=== PATIENT | female | born 1950 | race Two or more races ===

== ENCOUNTER 2020-09-29 10:19 | Emergency (ER) | payer MEDICARE, BC ==
[~2020-09-29] VITALS: Ht 160 cm; Wt 54.4 kg
--- NOTE | 2020-09-29 10:25 | NUR ---
Dr Ponce at the bedside for MSE.
--- NOTE | 2020-09-29 11:51 | NUR ---
Pt out of ER for CT.
--- NOTE | 2020-09-29 12:11 | NUR ---
PT back from ct, resting in bed.
[2020-09-29] MEDS ORDERED: wheelchair XX (13:12)
--- NOTE | 2020-09-29 13:38 | NUR ---
Patient discharged to home in stable condition. Written and verbal after care instructions given. Patient verbalizes understanding of instructions. Stressed follow up or return to ER for worsening s/s. Pt assissted to auto w/ wheelchair.
[2020-09-29 13:40] VITALS: BP 124/70
[2020-09-29] MEDS ORDERED: HYDR-3980 PO (13:47)
[2020-09-29] MEDS ORDERED: DOCU250C14 PO (13:47)
== END 2020-09-29 13:45 | disposition home or self-care (01) ==
LOC: ER 10:24
DX: S92.211A Displaced fracture of cuboid bone of right foot, initial encounter for closed fracture (principal); W18.40XA Slipping, tripping and stumbling without falling, unspecified, initial encounter; Y92.89 Other specified places as the place of occurrence of the external cause
CPT/HCPCS: 73610; 73630; 73700; A4663